=== PATIENT | female | born 1985 | race African-American/Black ===

== ENCOUNTER 2022-03-23 11:11 | Inpatient (IN) ==
[2022-03-23 12:55] LABS: Mucus,Urine Occasional /LPF (Occasional); RBC,Urine 740 /HPF (0-4)
[2022-03-23 13:04] LABS: Urine Color Red (Yellow)
[2022-03-23 13:05] LABS: Bilirubin,Urine Moderate mg/dL (Negative); Blood, Urine Large mg/dL (Negative); Glucose,Urine (UA) Negative (Negative); Ketones,Urine 15 mg/dL (Negative); Nitrite,Urine Positive (Negative); Protein,Urine >=300 mg/dL (Negative); Urine Appearance Clear (Clear); Urine Specific Gravity 1.015 (1.001-1.035)
[2022-03-23 13:29] LABS: Basophils % 0.2 % (0.0-0.8); Eosinophils % 0.1 % (0.00-10.9); Hematocrit 36.1 VOL% (35.7-47.0); Hemoglobin 12.5 GM/DL (12.0-16.0); Immature Granulocytes % 0.5 %; Immature Granulocytes Absolute 0.04 #; Lymphocytes # 0.4 10*3/uL (1.4-4.0); Lymphocytes % 4.1 % (21.3-54.2); Mean Corpuscular HGB Conc 34.6 GM/DL (32-36); Mean Corpuscular Volume 86.4 FL (87-102); Mean Platelet Volume 10.3 FL (9.6-12.0); Monocytes # 0.8 10*3/uL (0.11-0.8); Monocytes % 8.6 % (1.7-12.7); Neutrophils % 86.5 % (38.7-73.9); Platelet Count 295 T/CUMM (130-400); Red Blood Count 4.18 MC/CUMM (3.8-5.5); Red Cell Distribution Width 13.1 % (9.3-17.3); White Blood Count 8.8 T/CUMM (4-12)
[2022-03-23 13:29] LABS: Barbiturates Screen,Urine Negative (Negative); Benzodiazepines Screen,Urine Negative (Negative); Cannabinoid Screen,Urine Positive (Negative); Opiate Screen,Urine Negative (Negative); Phencyclidine Screen,Urine Negative (Negative)
[2022-03-23] MEDS ORDERED: ONDANSETRON 4 MG/2 ML VIAL IV STA (13:38)
[2022-03-23] MEDS ORDERED: MORPHINE 2 MG/1 ML SYRINGE IV STA (13:38)
[2022-03-23] MEDS ORDERED: MORPHINE 2 MG/1 ML SYRINGE ONE (13:40)
[2022-03-23 13:57] LABS: Albumin 3.2 G/DL (3.4-5.0); Bilirubin,Total 0.5 MG/DL (0.20-1.00); Calcium 8.4 MG/DL (8.5-10.1); Osmolality,Calculated 279.1 MOS/KG (273-304); Potassium 3.3 MMOL/L (3.5-5.1)
[2022-03-23 14:23] LABS: Lymphocytes 3 % (20-55); Metamyelocytes 1 %; Platelet Estimate Normal; Total Cells Counted 100
[2022-03-23] MEDS ORDERED: GLUCAGON 1 MG VIAL IM PRN (14:47)
[2022-03-23] MEDS ORDERED: ONDANSETRON 4 MG/2 ML VIAL IV PRN (14:47)
[2022-03-23] MEDS ORDERED: DEXTROSE 10% 25 GM/250 ML BAG IV PRN (14:47)
[2022-03-23] MEDS ORDERED: POTASSIUM CHLORIDE 20 MEQ TABLET PO ONE (14:53)
[2022-03-23] MEDS ORDERED: NICOTINE 14 MG/24 HR PATCH TRANSDERM PRN (15:13)
[2022-03-23 15:28] LABS: Thyroid Stimulating Hormone 0.133 uIU/ml (0.358-3.74)
[2022-03-23] MEDS: LEVOFLOXACIN INJ 750 MG/150 ML PREMIX IV SCH (16:14)
[2022-03-23] MEDS: HYDROmorphone 1 MG/1 ML SYRINGE IV PRN ×2 (16:25→20:55)
[2022-03-23] MEDS: LACTATED RINGERS 1,000 ML IV SCH (18:06)
[2022-03-23] MEDS: DOCUSATE SODIUM 100 MG CAPSULE PO SCH (20:54)
[2022-03-24] MEDS: LACTATED RINGERS 1,000 ML IV SCH ×4 (00:42→23:24)
[2022-03-24 05:18] LABS: Basophils % 0.4 % (0.0-0.8); Eosinophils # 0.3 10*3/uL (0.0-0.87); Eosinophils % 3.5 % (0.00-10.9); Hematocrit 34.4 VOL% (35.7-47.0); Hemoglobin 11.8 GM/DL (12.0-16.0); Immature Granulocytes % 0.8 %; Immature Granulocytes Absolute 0.06 #; Lymphocytes # 1.2 10*3/uL (1.4-4.0); Lymphocytes % 16.9 % (21.3-54.2); Mean Corpuscular HGB Conc 34.3 GM/DL (32-36); Mean Corpuscular Volume 86.9 FL (87-102); Mean Platelet Volume 10.7 FL (9.6-12.0); Monocytes # 0.8 10*3/uL (0.11-0.8); Monocytes % 11.6 % (1.7-12.7); Neutrophils % 66.8 % (38.7-73.9); Platelet Count 281 T/CUMM (130-400); Red Blood Count 3.96 MC/CUMM (3.8-5.5); White Blood Count 7.1 T/CUMM (4-12)
[2022-03-24 05:36] LABS: Calcium 7.9 MG/DL (8.5-10.1); Osmolality,Calculated 278.3 MOS/KG (273-304); Potassium 2.9 MMOL/L (3.5-5.1)
[2022-03-24] MEDS: POTASSIUM CHLORIDE 20 MEQ TABLET PO SCH ×3 (08:56→13:05)
[2022-03-24] MEDS: DOCUSATE SODIUM 100 MG CAPSULE PO SCH ×2 (08:56→21:00)
[2022-03-24] MEDS: HYDROmorphone 1 MG/1 ML SYRINGE IV PRN ×2 (10:17→20:05)
[2022-03-24 13:08] LABS: Free T4 (Free Thyroxine) 0.97 NG/DL (0.76-1.46)
[2022-03-24] MEDS: LEVOFLOXACIN INJ 750 MG/150 ML PREMIX IV SCH (14:52)
[2022-03-24] MEDS: POTASSIUM CHLORIDE INJ 40 MEQ in SODIUM CHLORIDE 0.45% 1,000 ML IV SCH (16:51)
[2022-03-24] MEDS ORDERED: ALUMINUM/MAGNES/SIMETH MAX STR 30 ML UDCUP PO PRN (19:57)
[2022-03-24] MEDS ORDERED: HYDROCORTISONE 1% CREAM 28 GM TUBE TOP PRN (22:48)
[2022-03-24] MEDS ORDERED: diphenhydrAMINE CAP 50 MG CAPSULE PO PRN (22:49)
[2022-03-24] MEDS ORDERED: CALCIUM CARBONATE CHEW 500 MG TABLET PO PRN (22:49)
[2022-03-24] MEDS: PANTOPRAZOLE 40 MG TABLET PO SCH (23:23)
[2022-03-25] MEDS: POTASSIUM CHLORIDE INJ 40 MEQ in SODIUM CHLORIDE 0.45% 1,000 ML IV SCH (04:45)
[2022-03-25 05:38] LABS: Basophils % 0.4 % (0.0-0.8); Eosinophils # 0.2 10*3/uL (0.0-0.87); Eosinophils % 3.7 % (0.00-10.9); Hematocrit 33.6 VOL% (35.7-47.0); Hemoglobin 11.2 GM/DL (12.0-16.0); Immature Granulocytes % 0.2 %; Immature Granulocytes Absolute 0.01 #; Lymphocytes # 1.4 10*3/uL (1.4-4.0); Lymphocytes % 30.6 % (21.3-54.2); Mean Corpuscular HGB Conc 33.3 GM/DL (32-36); Mean Corpuscular Volume 87.3 FL (87-102); Mean Platelet Volume 11.1 FL (9.6-12.0); Monocytes # 0.5 10*3/uL (0.11-0.8); Neutrophils % 54.1 % (38.7-73.9); Platelet Count 275 T/CUMM (130-400); Red Blood Count 3.85 MC/CUMM (3.8-5.5); Red Cell Distribution Width 13.2 % (9.3-17.3); White Blood Count 4.5 T/CUMM (4-12)
[2022-03-25 05:54] LABS: Calcium 8.8 MG/DL (8.5-10.1); Osmolality,Calculated 274.4 MOS/KG (273-304)
[2022-03-25 06:02] LABS: Platelet Estimate Normal
[2022-03-25] MEDS: PANTOPRAZOLE 40 MG TABLET PO SCH (08:39)
[2022-03-25] MEDS: DOCUSATE SODIUM 100 MG CAPSULE PO SCH (08:39)
[2022-03-25 12:50] VITALS: BP 119/64
== END 2022-03-25 14:49 | disposition home or self-care (01) | DRG 690 ==
LOC: N.ED 11:11 → N.5E 16:21 → SUATTDRO 16:21 → N.5E 16:43
PROVIDERS: ADMIT Internal Medicine; ATTEND Internal Medicine